=== PATIENT | female | born 1970 | race Caucasian/White ===

== ENCOUNTER 2025-03-08 18:43 | Emergency (ER) | payer OTHER, SELFPAY ==
[2025-03-08 18:46] VITALS: BP 184/103
[2025-03-08 19:09] VITALS: BMI 29.6
[2025-03-08 19:15] VITALS: BP 172/86
[2025-03-08 19:24] LABS: Hematocrit 34.3 % (37.0-47.0); Hemoglobin 11.8 g/dL (12.0-16.0); Mean Corp Hgb Conc. 34.4 g/dL (33.0-37.0); Mean Corpuscular Volume 90.7 fL (81.0-99.0); Platelet Count 331 10^3/uL (130-400); Red Cell Dist. Width 12.9 % (11.5-14.5)
--- NOTE | 2025-03-08 19:30 | ED.GENMED ---
History of Present Illness
General
Chief Complaint: Cardiac Symptoms
Source: patient
Time Seen by Provider: 03/08/25 18:53
History of Present Illness
History of Present Illness:
54-year-old female presents emergency department with episodes of 'lightheadedness, not dizziness' that have been happening on and off since Sunday. This is without specific provoking or relieving factors, not associated necessarily with position
or head movement, not described as a sense of spinning imbalance, and lasting just minutes at a time. She denies associated symptoms with this and has not had an episode of syncope. Then, today, she noted episodes where her watch will alert her
that her heart rate is elevated and with that she will feel palpitations. This lasts minutes at a time and then resolved completely. It is usually activity related. She denies associated chest pain or pressure, dyspnea, back pain, neck pain,
headache, abdominal pain, nausea, vomiting, leg swelling. Patient was recently started on a statin and does state that after working in the yard today she felt really hot and her legs were kind of sore. This has since resolved.
Past History
Past History
ED Past Medical History: HTN, Hypercholesterolemia and Hypothyroidism
ED Past Surgical History:
Social History
Tobacco: Former smoker
Alcohol: Occasional
Drug: None
Personal:
Living: with family
Phy Exam
Physical Exam
Physical Exam:
GENERAL: Alert , in no apparent distress
EYE: pupils equal and reactive
NECK: Supple, no significant adenopathy.
ENT: o/p clr, mmm.
CARDIAC: Regular rate and rhythm .
LUNGS: Clear breath sounds bilaterally, no acute respiratory distress, no wheezes/rales/rhonchi
ABDOMEN: Soft, without focal tenderness, no r/g, no cvat
NEUROLOGICAL: Alert and oriented, no focal neuro deficits
SKIN: Warm and dry, skin intact.
MUSCULOSKELETAL: No edema, well perfused.
PSYCH: Normal and appropriate interaction.
Course
Orders/Labs/Results
Orders:
Orders
03/08/25 18:45
Electrocardiogram (*1) Urgent
Reason for Study: Other
Other Reason for Exam: feeling lightheded and weak in the knees/heart racing
EKG- Treatment ONCE
03/08/25 18:56
Cardiac Monitoring- Treatment ONCE
03/08/25 19:14
Complete Blood Count/No Diff Urgent
Comprehensive Metabolic Panel Urgent
Creatine Phosphokinase Urgent
Comment: ADD ON
TSH Urgent
03/08/25 19:33
Troponin I Urgent
03/08/25 19:52
Add On- LAB Urgent
Tests Added?: CPK
Abnormal Lab Results
03/08/25
19:14
WBC 11.1 H 10^3/uL
(4.8-10.8)
RBC 3.78 L 10^6/uL
(4.20-5.40)
Hgb 11.8 L g/dL
(12.0-16.0)
Hct 34.3 L %
(37.0-47.0)
MCH 31.2 H pg
(27.0-31.0)
MPV 11.0 H fL
(7.4-10.4)
Sodium 129 L mmol/L
(135-145)
Carbon Dioxide 19 L mmol/L
(22-30)
Glucose 105 H mg/dl
(70-99)
03/08/25 19:14
03/08/25 19:14
Vital Signs
Initial and Last Documented VS:
Initial Vital Signs
Temp Pulse Resp BP Pulse Ox
97.5 F 80 18 184/103 99
03/08/25 18:46 03/08/25 18:46 03/08/25 18:46 03/08/25 18:46 03/08/25 18:46
Last Documented Vital Signs
Temp Pulse Resp BP Pulse Ox
97.5 F 70 11 166/84 100
03/08/25 18:46 03/08/25 21:45 03/08/25 21:45 03/08/25 21:00 03/08/25 21:45
*Pulse Oximetry
SaO2: 100
Oxygen Mode of Delivery: Room air
Patient hypoxic: no
*Critical Care Note
Total Time (30-74mins, 75-104mins- exclusive of procedures): Not Applicable
Update Note
Update Note:
Patient presents to the Emergency Department with ____palpitations and lightheadedness
Number and Complexity of Problems Addressed at the Encounter
� Chronic conditions affecting care:
� Acute Exacerbation and/or Progression of Chronic Illness:
� Differential Diagnosis includes: But not limited to anxiety, arrhythmia, thyroid disorder, electrolyte disorder, PE, etc. etc.
Amount and/or Complexity of Data to be Reviewed and Analyzed
� I performed an independent evaluation of and my interpretation is:
EKG: Read by me, normal sinus rhythm, normal rate, normal axis, no acute ischemia
CT:
Xrays:
Laboratory Studies: Mild leukocytosis, mild anemia, hyponatremia noted TSH and troponin unremarkable
Other:
� Review of other/old records reveals:
� Clinical information was obtained by an independent historian:
� Prescriptions/Medications Considered but not given:
� Further testing considered but not performed: Consideration for for PE workup however patient does not describe any risk factors, she is a non-smoker, no recent immobilization or trauma, no family history, no leg swelling, no
pleuritic chest pain, etc. etc.
Risk of Complications and/or Morbidity or Mortality of Patient Management
� Social determinants of health affecting care:
� Discussion with other providers (PCP, Hospitalists, Consultants, etc):
� Escalation of care including admission/observation vs risk of discharge considered: 10:00 PM patient remains asymptomatic, no abnormalities of heart rate or rhythm noted here on telemetry. She does have mild hyponatremia noted
here which may be contributing to her symptoms. She describes drinking a lot of water each day. I encouraged her to reduce the amount of free water that she is ingesting, and will need her sodium rechecked with her primary care doctor. She
understands this. 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 Discussed with her importance of follow-up and reasons return to the ER.
ED Attending Note
-
Portions of this chart may have been created with voice recognition software.� Occasional wrong word or��sound alike� substitutions may have occurred due to the inherent limitations of voice recognition software.
Discharge Plan
Departure
Patient Disposition: Home (Routine Discharge)
Date of Disposition: 03/08/25
Time of Disposition: 22:04
Patient with high blood pressure during this ER visit?: Yes
Condition: Good
Discharge Problem:
Acute hyponatremia, Heart palpitations, Dizziness
Instructions: Hyponatremia, Dizziness in adults - ED (DC), BLOOD PRESSURE, Heart Palpitations
Prescriptions:
No Action
levothyroxine 25 mcg Tablet
25 mcg PO DAILY
atenolol 50 mg Tablet
25 mg PO BID
olmesartan 20 mg Tablet
20 mg PO DAILY
rosuvastatin 10 mg Tablet
10 mg PO DAILY
Referrals:
[facility], [Other]
[facility] DO [Family Provider, Family Practice] - Follow up in 2-3 days
Activity Restrictions/Additional Instructions:
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 PLEASE SEE YOUR PRIMARY CARE DOCTOR THIS WEEK. YOU HAVE LAB ABNORMALITIES THAT REQUIRE CLOSE FOLLOW-UP INCLUDING YOUR SODIUM LEVEL. YOU SHOULD REDUCE THE AMOUNT OF FLUIDS THAT YOU ARE
INGESTING PER DAY WE DISCUSSED. IF YOU DEVELOP LETHARGY, CHEST PAIN, SHORTNESS OF BREATH, PERSISTENT PALPITATIONS, INCREASING EPISODES OF LIGHTHEADEDNESS, GET WORSE, OR OTHER WORRISOME SIGNS, PLEASE RETURN TO THE ER IMMEDIATELY!
Interventions
Interventions:
*Risk Screen - Suicide Last Done: 03/08/25 18:47
*General Assessment Last Done: 03/08/25 18:47
*Neglect/Abuse Screening Last Done: 03/08/25 18:47
*ED COVID-19 Vaccine History Last Done: 03/08/25 18:47
*ED Influenza Vaccine History Last Done: 03/08/25 18:47
ED- Pulmonary Assessment Last Done: 03/08/25 19:27
ED- Cardiac Assessment Last Done: 03/08/25 19:27
Discharge Date and Time
Print Language: MALDIVIAN
[2025-03-08 19:53] LABS: ALT (SGPT) 31 U/L (0-35); AST (SGOT) 34 U/L (14-36); Albumin 4.8 g/dl (3.5-5.0); Alkaline Phosphatase 102 U/L (38-126); Blood Urea Nitrogen 14 mg/dl (7-17); Calcium 9.8 mg/dl (8.4-10.2); Carbon Dioxide 19 mmol/L (22-30); Chloride 100 mmol/L (98-107); Estimated Creatinine Clearance 88 ml/min; Glucose 105 mg/dl (70-99); Potassium 3.9 mmol/L (3.5-5.1); Sodium 129 mmol/L (135-145); Total Protein 7.6 g/dl (6.3-8.2); eGFR > 60.00
[2025-03-08 20:00] VITALS: BP 159/75
[2025-03-08 20:06] LABS: Troponin I 0.013 ng/ml
[2025-03-08 20:24] LABS: TSH 4.17 uIU/ml (0.47-4.68)
[2025-03-08 21:00] VITALS: BP 166/84
== END 2025-03-08 22:18 | disposition home or self-care (01) ==
LOC: EMR 18:43
PROVIDERS: EMERGENCY PHYSICIAN Emergency Medicine; FAMILY PHYSICIAN Family Medicine
DX: E87.1 Hypo-osmolality and hyponatremia (principal); R00.2 Palpitations; R42 Dizziness and giddiness; E78.00 Pure hypercholesterolemia, unspecified; I10 Essential (primary) hypertension; E03.9 Hypothyroidism, unspecified; Z87.891 Personal history of nicotine dependence
CPT/HCPCS: 99284; 80053; 82550; 84443; 84484; 85027; 93005